=== PATIENT | female | born 1990 | race American Indian/Alaskan Native ===

== ENCOUNTER 2022-05-16 04:10 | Emergency (ER) | payer MEDICAID ==
[2022-05-16] MEDS ORDERED: ONDANSETRON 4 MG/2 ML INJ IV ONE (05:03)
[2022-05-16] MEDS ORDERED: MORPHINE 2 MG/1 ML INJ IV ONE (05:03)
[2022-05-16] MEDS ORDERED: SODIUM CHLORIDE 0.9% 1000 ML 1,000 ML IV ONE ×3 (05:04→07:55)
[2022-05-16 05:33] LABS: Hematocrit 38.5 % (30.3-42.9); Hemoglobin 12.7 gm/dl (10.1-14.3); Mean Corpuscular HGB Conc 33 % (30-34); Mean Corpuscular Volume 86 fl (79-97); Platelet Count 394 K/mm3 (140-440); Red Blood Count 4.46 M/mm3 (3.65-5.03); Red Cell Distribution Width 16.8 % (13.2-15.2)
[2022-05-16 05:50] LABS: Alanine Aminotransferase 18 units/L (7-56); Albumin 4.1 g/dL (3.9-5); BUN/Creatinine Ratio 10; Blood Urea Nitrogen 8 mg/dL (7-17); Calcium 10.1 mg/dL (8.4-10.2); Hemolysis Index 6
[2022-05-16 06:22] LABS: Bacteria,Urine 1+ /HPF (Negative); Mucus,Urine FEW /HPF
[2022-05-16 06:35] LABS: Bilirubin,Urine Negative (Negative); Blood,Urine Negative (Negative); Color,Urine Yellow (Yellow); Protein,Urine <15 mg/dL mg/dL (Negative); Urobilinogen,Urine < 2.0 mg/dL (<2.0)
[2022-05-16 06:45] LABS: Total Cells Counted 100
[2022-05-16 06:46] LABS: Band Neutrophils # (Manual) 0.2 K/mm3; Basophils % (Manual) 0 % (0.0-1.8); Eosinophils % (Manual) 0 % (0.0-4.3)
[2022-05-16 06:47] LABS: Anisocytosis 1+; Hypochromasia 1+; Large Platelets Few; Platelet Estimate Consistent w Auto
[2022-05-16] MEDS ORDERED: fentaNYL 100 MCG/2 ML INJ IV ONE (06:52)
--- NOTE | 2022-05-16 06:52 | Cat Scan Report ---
CT ABDOMEN AND PELVIS WITH CONTRAST INDICATION / CLINICAL INFORMATION: ABDOMINAL PAIN. TECHNIQUE: Axial CT images were obtained through the abdomen and pelvis after IV contrast. All CT sc ans at this location are performed using CT dose reduction for ALARA by means of automated exposure c ontrol. COMPARISON: None available. FINDINGS: LOWER CHEST: No significant abnormality of the imaged chest. LIVER: No focal lesion. No acute findings. GALLBLADDER / BILE DUCTS: Clearly identified possibly absent. Biliary ducts grossly unremarkable. SPLEEN: No significant abnormality. PANCREAS: No significant abnormality. ADRENALS: No significant abnormality. KIDNEYS/URETERS: No stones or hydronephrosis. No solid renal lesion. STOMACH / DUODENUM / SMALL BOWEL: Multiple small bowel loops within the mid and lower abdomen are upp er limits of normal in size to minimally enlarged. The majority of these loops are filled with fluid with scattered air-fluid levels. No definite transition point is identified. Additional scattered foc i of fat stranding within the mesentery. Ileostomy right lower quadrant. Surgical drain within the ab domen and pelvis.. COLON: Suture line within the pelvis from prior colectomy. The remaining rectal stump demonstrates so me evidence of wall thickening as well as adjacent fat stranding likely related to recent surgery. PERITONEUM: Free fluid dependently within the pelvis contains small collection of air likely related to recent surgery. Additional small amount of fluid noted in the region of the left salpinx. LYMPH NODES: No significant adenopathy. AORTA / ARTERIES: No significant abnormality. IVC / VEINS: No significant abnormality. URINARY BLADDER: Bladder decompressed. REPRODUCTIVE ORGANS: Uterus and ovaries demonstrate no specific abnormality. SKELETAL SYSTEM: No significant abnormality. ADDITIONAL ABDOMINAL/PELVIC FINDINGS: None. IMPRESSION: 1. Postoperative changes suggestive of recent colectomy. Residual stranding and fluid within the pelv is likely related to surgery. 2. Small bowel loops within the mid and lower abdomen are upper limits of normal in size. No transiti on point identified. Primary differential consideration would include ileus versus developing small b owel obstruction. 3. Gallbladder not clearly identified possibly absent. Signer Name: Kei Huggins II, MD Signed: 05/16/2022 6:47 AM Workstation Name: [id number]
--- NOTE | 2022-05-16 07:28 | Emergency Department Report ---
HPI - General Chief Complaint: Abdominal Pain Time Seen by Provider: 05/16/22 06:42 - HPI HPI: Room 2 Patient is a 32-year-old female present with chief complaint of abdominal pain. Patient states she has a history of colorectal CA status post tumor removal and colostomy placement [address] Prem Da Silva at [facility]. The patient states she was discharged from the hospital postoperatively 3 days ago and for that time she suffered from intermittent periumbilical spasms associated with nausea vomiting and diaphoresis. Patient states she has been unable to keep anything down including her medication secondary to the nausea vomiting. Patient complains of feeling weak and drained. Patient states she is currently on antibiotics for a UTI. Patient states she has not contacted her surgeon yet about the above complaints. ED Past Medical Hx - Past Medical History Hx of Cancer: Yes (colon cancer s/p xrt/chemo/surg) - Surgical History Additional Surgical History: Colorectal CA resection, colostomy, abdominal drain placement, colon biopsy, liver biopsy, port placement - Family History Family history: no significant - Social History Smoking Status: Never Smoker Substance Use Type: None (Denies illicit drug use) ED Review of Systems ROS: Stated complaint: ABD PAIN Other details as noted in HPI Constitutional: fever (Subjective) Eyes: denies: eye pain ENT: denies: throat pain Respiratory: no symptoms reported Cardiovascular: denies: chest pain Endocrine: no symptoms reported Gastrointestinal: abdominal pain, nausea, vomiting Genitourinary: denies: dysuria Musculoskeletal: denies: back pain Neurological: denies: headache Physical Exam - Physical Exam Vital Signs: Vital Signs 05/16/22 05/16/22 05/16/22 04:37 04:57 05:52 Temperature 100.4 F H 98.6 F Pulse Rate 110 H 134 H Respiratory 16 20 21 Rate Blood Pressure 153/86 Blood Pressure 136/90 [Right] O2 Sat by Pulse 98 100 99 Oximetry 05/16/22 05/16/22 05/16/22 06:00 06:24 06:30 Temperature Pulse Rate 104 H 111 H Respiratory 17 19 Rate Blood Pressure 141/91 141/91 141/91 Blood Pressure [Right] O2 Sat by Pulse 100 96 99 Oximetry 05/16/22 05/16/22 06:46 07:00 Temperature Pulse Rate 113 H 102 H Respiratory 15 14 Rate Blood Pressure 136/88 136/88 Blood Pressure [Right] O2 Sat by Pulse 99 97 Oximetry Physical Exam: GENERAL: The patient is well-developed well-nourished female lying on stretcher not appearing to be in acute distress. [] HEENT: Normocephalic. Atraumatic. Extraocular motions are intact. Patient has moist mucous membranes. NECK: Supple. Trachea midline CHEST/LUNGS: Clear to auscultation. There is no respiratory distress noted. HEART/CARDIOVASCULAR: Regular. There is tachycardia. There is no gallop rub or murmur. ABDOMEN: Abdomen is soft, with diffuse postop tenderness. Patient has normal bowel sounds. There is no abdominal distention. SKIN: There is no rash. There is no edema. There is no diaphoresis. NEURO: The patient is awake, alert, and oriented. The patient is cooperative. The patient has no focal neurologic deficits. The patient has normal speech. GCS 15 MUSCULOSKELETAL: There is no evidence of acute injury. ED Course Vital Signs 05/16/22 05/16/22 05/16/22 04:37 04:57 05:52 Temperature 100.4 F H 98.6 F Pulse Rate 110 H 134 H Respiratory 16 20 21 Rate Blood Pressure 153/86 Blood Pressure 136/90 [Right] O2 Sat by Pulse 98 100 99 Oximetry 05/16/22 05/16/22 05/16/22 06:00 06:24 06:30 Temperature Pulse Rate 104 H 111 H Respiratory 17 19 Rate Blood Pressure 141/91 141/91 141/91 Blood Pressure [Right] O2 Sat by Pulse 100 96 99 Oximetry 05/16/22 05/16/22 06:46 07:00 Temperature Pulse Rate 113 H 102 H Respiratory 15 14 Rate Blood Pressure 136/88 136/88 Blood Pressure [Right] O2 Sat by Pulse 99 97 Oximetry - Consultations Consultation #1: 05/16/22 07:33 Patient's surgeon called 05/16/22 07:[address] Da Silva-will accept patient in transfer to [facility] ED Medical Decision Making - Lab Data Result diagrams: 05/16/22 05:10 05/16/22 05:10 Laboratory Tests 05/16/22 05/16/22 05/16/22 05:10 05:10 05:10 WBC 8.6 RBC 4.46 Hgb 12.7 Hct 38.5 MCV 86 MCH 29 MCHC 33 RDW 16.8 H Plt Count 394 Add Manual Diff Complete Total Counted 100 Seg Neuts % (Manual) 82.0 H Band Neutrophils % 2.0 Lymphocytes % (Manual) 7.0 L Reactive Lymphs % (Man) 0 Monocytes % (Manual) 7.0 Eosinophils % (Manual) 0 Basophils % (Manual) 0 Metamyelocytes % 2.0 Myelocytes % 0 Promyelocytes % 0 Blast Cells % 0 Nucleated RBC % Not Reportable Seg Neutrophils # Man 7.1 Band Neutrophils # 0.2 Lymphocytes # (Manual) 0.6 L Abs React Lymphs (Man) 0.0 Monocytes # (Manual) 0.6 Eosinophils # (Manual) 0.0 Basophils # (Manual) 0.0 Metamyelocytes # 0.2 Myelocytes # 0.0 Promyelocytes # 0.0 Blast Cells # 0.0 WBC Morphology Not Reportable Hypersegmented Neuts Not Reportable Hyposegmented Neuts Not Reportable Hypogranular Neuts Not Reportable Smudge Cells Not Reportable Toxic Granulation Not Reportable Toxic Vacuolation Not Reportable Dohle Bodies Not Reportable Pelger-Huet Anomaly Not Reportable West Rods Not Reportable Platelet Estimate Consistent w auto Clumped Platelets Not Reportable Plt Clumps, EDTA Not Reportable Large Platelets Few Giant Platelets Not Reportable Platelet Satelliting Not Reportable Plt Morphology Comment Not Reportable RBC Morphology Not Reportable Dimorphic RBCs Not Reportable Polychromasia Not Reportable Hypochromasia 1+ Poikilocytosis Not Reportable Anisocytosis 1+ Microcytosis 1+ Macrocytosis Not Reportable Spherocytes Not Reportable Pappenheimer Bodies Not Reportable Sickle Cells Not Reportable Target Cells Not Reportable Tear Drop Cells Not Reportable Ovalocytes Not Reportable Helmet Cells Not Reportable Ramírez-[place] Bodies Not Reportable [place] Rings Not Reportable [place] Cells Not Reportable Bite Cells Not Reportable Crenated Cell Not Reportable Elliptocytes Not Reportable Acanthocytes (Spur) Not Reportable Rouleaux Not Reportable Hemoglobin C Crystals Not Reportable Schistocytes Not Reportable Malaria parasites Not Reportable Benjamín Bodies Not Reportable Hem Pathologist Commnt No Sodium 139 Potassium 4.9 Chloride 97.5 L Carbon Dioxide 26 Anion Gap 20 BUN 8 Creatinine 0.8 Estimated GFR > 60 BUN/Creatinine Ratio 10 Glucose 161 H Lactic Acid 2.70 H* Calcium 10.1 Total Bilirubin 0.40 AST 25 ALT 18 Alkaline Phosphatase 93 Total Protein 9.1 H Albumin 4.1 Albumin/Globulin Ratio 0.8 Lipase HCG, Qual Urine Color Urine Turbidity Urine pH Ur Specific [place] Urine Protein Urine Glucose (UA) Urine Ketones Urine Blood Urine Nitrite Ur Reducing Substances Urine Bilirubin Urine Ictotest Urine Urobilinogen Ur Leukocyte Esterase Urine WBC (Auto) Urine RBC (Auto) U Epithel Cells (Auto) Urine Bacteria (Auto) Urine Mucus 05/16/22 05/16/22 05/16/22 05:10 05:10 06:05 WBC RBC Hgb Hct MCV MCH MCHC RDW Plt Count Add Manual Diff Total Counted Seg Neuts % (Manual) Band Neutrophils % Lymphocytes % (Manual) Reactive Lymphs % (Man) Monocytes % (Manual) Eosinophils % (Manual) Basophils % (Manual) Metamyelocytes % Myelocytes % Promyelocytes % Blast Cells % Nucleated RBC % Seg Neutrophils # Man Band Neutrophils # Lymphocytes # (Manual) Abs React Lymphs (Man) Monocytes # (Manual) Eosinophils # (Manual) Basophils # (Manual) Metamyelocytes # Myelocytes # Promyelocytes # Blast Cells # WBC Morphology Hypersegmented Neuts Hyposegmented Neuts Hypogranular Neuts Smudge Cells Toxic Granulation Toxic Vacuolation Dohle Bodies Pelger-Huet Anomaly [place] Rod[place] Platelet Estimate Clumped Platelets Plt Clumps, EDTA Large Platelets Giant Platelets Platelet Satelliting Plt Morphology Comment RBC Morphology Dimorphic RBCs Polychromasia Hypochromasia Poikilocytosis Anisocytosis Microcytosis Macrocytosis Spherocytes Pappenheimer Bodies Sickle Cells Target Cells Tear Drop Cells Ovalocytes Helmet Cells Ramírez-[place] Bodies [place] Rings [place] Cells Bite Cells Crenated Cell Elliptocytes Acanthocytes (Spur) Rouleaux Hemoglobin C Crystals Schistocytes Malaria parasites Benjamín Bodies Hem Pathologist Commnt Sodium Potassium Chloride Carbon Dioxide Anion Gap BUN Creatinine Estimated GFR BUN/Creatinine Ratio Glucose Lactic Acid Calcium Total Bilirubin AST ALT Alkaline Phosphatase Total Protein Albumin Albumin/Globulin Ratio Lipase 22 HCG, Qual Negative Urine Color Yellow Urine Turbidity Clear Urine pH 6.0 Ur Specific [place] 1.020 Urine Protein <15 mg/dl Urine Glucose (UA) Negative Urine Ketones 300 Urine Blood Negative Urine Nitrite Negative Ur Reducing Substances Not Reportable Urine Bilirubin Negative Urine Ictotest Not Reportable Urine Urobilinogen < 2.0 Ur Leukocyte Esterase Negative Urine WBC (Auto) 5.0 Urine RBC (Auto) 1.0 U Epithel Cells (Auto) 7.0 Urine Bacteria (Auto) 1+ Urine Mucus Few - Radiology Data Radiology results: report reviewed (CT abdomen pelvis), image reviewed (CT abdomen pelvis) [facility] [address] [place] [address] Cat Scan Report Signed Patient: KELLY KITCHEN MR#: [id number] 1 : 1990 Acct:[id number] Age/Sex: 32 / F ADM Date: 05/16/22 Loc: ED Attending Dr: Ordering Physician: FELIPA SPENCER Date of Service: 05/16/22 Procedure(s): CT abdomen pelvis w con Accession Number(s): [id number] cc: FELIPA SPENCER CT ABDOMEN AND PELVIS WITH CONTRAST INDICATION / CLINICAL INFORMATION: ABDOMINAL PAIN. TECHNIQUE: Axial CT images were obtained through the abdomen and pelvis after IV contrast. All CT scans at this location are performed using CT dose reduction for ALARA by means of automated exposure control. COMPARISON: None available. FINDINGS: LOWER CHEST: No significant abnormality of the imaged chest. LIVER: No focal lesion. No acute findings. GALLBLADDER / BILE DUCTS: Clearly identified possibly absent. Biliary ducts grossly unremarkable. SPLEEN: No significant abnormality. PANCREAS: No significant abnormality. ADRENALS: No significant abnormality. KIDNEYS/URETERS: No stones or hydronephrosis. No solid renal lesion. STOMACH / DUODENUM / SMALL BOWEL: Multiple small bowel loops within the mid and lower abdomen are upper limits of normal in size to minimally enlarged. The majority of these loops are filled with fluid with scattered air-fluid levels. No definite transition point is identified. Additional scattered foci of fat stranding within the mesentery. Ileostomy right lower quadrant. Surgical drain within the abdomen and pelvis.. COLON: Suture line within the pelvis from prior colectomy. The remaining rectal stump demonstrates some evidence of wall thickening as well as adjacent fat stranding likely related to recent surgery. PERITONEUM: Free fluid dependently within the pelvis contains small collection of air likely related to recent surgery. Additional small amount of fluid noted in the region of the left salpinx. LYMPH NODES: No significant adenopathy. AORTA / ARTERIES: No significant abnormality. IVC / VEINS: No significant abnormality. URINARY BLADDER: Bladder decompressed. REPRODUCTIVE ORGANS: Uterus and ovaries demonstrate no specific abnormality. SKELETAL SYSTEM: No significant abnormality. ADDITIONAL ABDOMINAL/PELVIC FINDINGS: None. IMPRESSION: 1. Postoperative changes suggestive of recent colectomy. Residual stranding and fluid within the pelvis likely related to surgery. 2. Small bowel loops within the mid and lower abdomen are upper limits of normal in size. No transition point identified. Primary differential consideration would include ileus versus developing small bowel obstruction. 3. Gallbladder not clearly identified possibly absent. Signer Name: Khushbu Bae II, MD Signed: 05/16/2022 6:47 AM Workstation Name: [id number] Transcribed By: FLORIAN Dictated By: KHUSHBU BAE II, MD Electronically Authenticated By: KHUSHBU BAE II, MD Signed Date/Time: 05/16/22646 DD/ 0 TD/TT: Print Cancel - Differential Diagnosis Postop complication, P SBO, ileus, Critical care attestation.: If time is entered above; I have spent that time in minutes in the direct care of this critically ill patient, excluding procedure time. ED Disposition Clinical Impression: Intractable nausea and vomiting, Postoperative abdominal pain Disposition: 51 HOSPICE/MEDICAL FACILITY Is pt being admited?: No Does the pt Need Aspirin: No Condition: Stable Instructions: Abdominal Pain (ED) Time of Disposition: 07:40 (Awaiting transport)
[2022-05-16] MEDS ORDERED: METOCLOPRAMIDE 10 MG/2 ML INJ IV ONE (09:06)
[2022-05-16 09:17] VITALS: BP 114/61
[2022-05-16] MEDS ORDERED: fentaNYL 100 MCG/2 ML INJ ONE (09:29)
== END 2022-05-16 10:33 | disposition hospice, inpatient (51) ==
LOC: ED 04:10
DX: R11.2 Nausea with vomiting, unspecified (principal); G89.12 Acute post-thoracotomy pain; Z85.038 Personal history of other malignant neoplasm of large intestine; Z98.890 Other specified postprocedural states
CPT/HCPCS: 36415; 74177; 80053; 81001; 82140; 83690; 84703; 85007; 85025; 96361; 96374; 96375; 99284; J2270; J2405; J2765; J3010; J7030; Q9967